=== PATIENT | male | born 1955 | race Caucasian/White ===

== ENCOUNTER → 2021-05-25 | Outpatient (CLI) | payer MEDICARE, OTHER | LOC: COL.RAD 08:39 | DX: M47.816 Spondylosis without myelopathy or radiculopathy, lumbar region (principal) | CPT/HCPCS: A9503; Q9967 ==

== ENCOUNTER → 2021-07-25 | Outpatient (CLI) | payer MEDICARE, OTHER ==
[~2021-07-25] VITALS: Ht 193 cm; Wt 172.0 kg
[~2021-07-25] MED LIST: ASPIRIN E.C. 8181 MG PO; CLEOCIN HCL300 MG PO; GLUCOPHAGE500 MG/TAB PO; LASIX 20MG TABL20 MG PO; ZETIA 10MG TAB10 MG PO
[2021-07-25 09:10] VITALS: BP 159/93; PULSE 87; TEMP 98.2
--- NOTE | 2021-07-25 10:20 | NUR ---
went over dc information with patient. given snack. site is [facility].
== END ==
LOC: COL.RAD 08:29
DX: C61 Malignant neoplasm of prostate (principal)
CPT/HCPCS: 32108